=== PATIENT | female | born 1980 | race African-American/Black ===

== ENCOUNTER 2020-05-07 12:18 | Outpatient (CLI) | payer MEDICAID | END 2020-05-07 12:19 | disposition home or self-care (01) | LOC: COV 12:18 | PROVIDERS: ATTEND Family Medicine | DX: U07.1 COVID-19 (principal) ==

== ENCOUNTER 2022-07-31 07:00 | Outpatient (CLI) | payer MEDICAID, OTHER ==
--- NOTE | 2022-07-31 18:41 | XRAY Report ---
PROCEDURE: Sacrum/Coccyx INDICATIONS: COXALGIA TECHNIQUE: 3 views of the sacrum and coccyx acquired. COMPARISON: None. FINDINGS: Bones: No acute fractures or dislocations. No suspicious bony lesions. Soft tissues: Visualized bowel gas pattern is normal. No suspicious soft tissue densities. Intraut erine device is seen projecting over the pelvis. IMPRESSION: No acute osseous abnormality. If symptoms persist or there is continued clinical concern, further bulmaro luation with MRI or CT may be helpful. Reviewed by: Lisandro Sheehan MD on 07/31/2022 6:40 PM PDT Approved by: Lisandro Sheehan MD on 07/31/2022 6:40 PM PDT Station ID: [id number]
== END 2022-07-31 23:59 | disposition home or self-care (01) ==
LOC: DI.S 07:00
PROVIDERS: ATTEND Physician Assistant Medical
DX: M25.559 Pain in unspecified hip (principal)